=== PATIENT | male | born 1945 | race Two or more races ===

== ENCOUNTER → 2016-10-28 | Outpatient (CLI) | payer MEDICARE | END | disposition disaster alternative care site (69) | LOC: GRAD 14:30 | DX: N18.3 Chronic kidney disease, stage 3 (moderate) (principal); N28.1 Cyst of kidney, acquired ==

== ENCOUNTER → 2016-11-08 | Outpatient (CLI) | payer MEDICARE | LOC: LGSMG 14:10 | DX: N18.3 Chronic kidney disease, stage 3 (moderate) (principal) ==